=== PATIENT | male | born 1950 | race Caucasian/White ===

== ENCOUNTER → 2016-10-25 | Outpatient (CLI) | payer MEDICARE ==
[~2016-10-25] MED LIST: ASPI325T4 PO; ATEN25TA PO; CALC-116 PO; DOXY100T PO; FINA5TAB4 PO; LEVO125T PO; LOVA40TA2 PO; MAGN400O4 PO; ZOLP10TA5 PO
== END | disposition home or self-care (01) ==
LOC: RAD 12:29
PROVIDERS: ATTEND Neurological Surgery
DX: M41.84 Other forms of scoliosis, thoracic region (principal); M51.04 Intervertebral disc disorders with myelopathy, thoracic region; M43.8X4 Other specified deforming dorsopathies, thoracic region; Z98.890 Other specified postprocedural states; Z98.1 Arthrodesis status
CPT/HCPCS: 72082